=== PATIENT | male | born 1950 ===

== ENCOUNTER 2022-05-08 15:15 | Emergency (ER) | payer SELFPAY ==
[~2022-05-08] VITALS: Ht 157.5 cm; Wt 75.0 kg
[2022-05-08 15:22] VITALS: BP 132/77
== END 2022-05-08 16:45 | disposition left against medical advice (07) ==
LOC: ER 15:15
DX: Z53.21 Procedure and treatment not carried out due to patient leaving prior to being seen by health care provider (principal)
CPT/HCPCS: 93005